=== PATIENT | male | born 1975 | race Caucasian/White ===

== ENCOUNTER 2022-07-28 11:19 | Observation (INO) | payer OTHER, SELFPAY ==
[2022-07-28 11:20] VITALS: BP 202/101; PULSE 76; RESP 18; TEMP 36.1; O2SAT 100; BMI 53.2
--- NOTE | 2022-07-28 11:42 | ED.VIS.CHEST ---
HPI <RU Webster - Last Filed: 07/28/22 16:45> History of Present Illness Chief Complaint: Chest Pain Narrative Narrative: Patient presents today with nonradiating constant midsternal chest discomfort and chest heaviness that started around 10:30 this morning while he was at [employer]. Patient also states that he feels like he has a lump in his throat. He states that about a week ago he was at a conference for work when he had similar symptoms as well as heart palpitations but thought that he was maybe having a panic attack as he has had them in the past. Today he figured he would come and get this evaluated since it happened again. Patient's blood pressure is elevated in triage but he states that he has no history of hypertension. PMH includes hypothyroidism and obesity. He denies any shortness of breath, fever, chills, abdominal pain, nausea, and vomiting. Denies a history of cardiac conditions and states he has never had a blood clot. PFSH <RU Webster - Last Filed: 07/28/22 16:45> [facility] Medical History (Updated 07/28/22 @ 15:[address] Earnest Russell MD) Hypothyroid Allergy/AdvReac Type Severity Reaction Status Date / Time codeine Allergy Shortness Verified 07/28/22 11:23 of breath Social History Smoking Status: Never smoker ROS <RU Webster - Last Filed: 07/28/22 16:45> ROS ED Constitutional Constitutional ED: Denies chills, fever(s) or sweats Eyes Eyes: Denies blurry vision or diplopia Cardiovascular Cardiovascular: Reports chest pain and other Details: Chest heaviness ; Denies palpitations Respiratory/Chest Respiratory/Chest: Reports cough; Denies dyspnea, tachypnea or wheezing Gastrointestinal Gastrointestinal: Denies abdominal pain, diarrhea, nausea or vomiting Genitourinary Genitourinary ED: Denies dysuria, hematuria or urinary urgency Musculoskeletal Musculoskeletal: Denies arthralgias, back pain, myalgias or neck pain Integumentary Denies abscess, Abrasions or rash Neurologic Neurologic: Denies confusion, dizziness or paresthesias Psychiatric Psychiatric: Denies anxiety, depression, suicidal ideation or suicidal thoughts EXAM <RU Webster Last Filed: 07/28/22 16:45> Physical Exam Const Vital Signs: 07/28/22 11:20 07/28/22 12:09 07/28/22 14:00 Temperature 97 F L 97.6 F L Temperature Source Temporal Temporal Pulse Rate 76 64 Respiratory Rate 18 18 Blood Pressure 202/101 H 178/90 H 159/79 H Blood Pressure Mean 134 105 Pulse Ox 100 99 Oxygen Delivery Method Room Air Room Air 07/28/22 16:12 Temperature 98.8 F Temperature Source Oral Pulse Rate 70 Respiratory Rate 15 Blood Pressure 147/74 H Blood Pressure Mean 98 Pulse Ox 97 Oxygen Delivery Method Room Air Positive obese and no apparent distress Nutritional Appearance: obese HEENT Reports normocephalic and head/scalp atraumatic Mouth ED: Yes moist mucous membranes normal Eyes PERRL and EOMs intact bilaterally Neck full ROM and supple Chest Wall inspection of chest normal and palpation of chest normal Resp normal respiratory effort and clear to auscultation bilaterally Cardio regular rate and regular rhythm GI soft to palpation, non-tender, non-distended and no masses Back/Spine normal ROM and normal to inspection Extremity normal to inspection and full ROM Neuro oriented x3, CN's II-XII intact bilaterally, moves all extremities, no focal motor deficits and no sensory deficits noted Sensorium / Orientation: awake and alert Psych mental status grossly normal and thought process normal Skin no rashes or lesions noted and no wounds <Dr. Earnest Russell MD - Last Filed: 07/28/22 15:25> Physical Exam Const Vital Signs: 07/28/22 11:20 07/28/22 12:09 07/28/22 14:00 Temperature 97 F L 97.6 F L Temperature Source Temporal Temporal Pulse Rate 76 64 Respiratory Rate 18 18 Blood Pressure 202/101 H 178/90 H 159/79 H Blood Pressure Mean 134 105 Pulse Ox 100 99 Oxygen Delivery Method Room Air Room Air 07/28/22 16:12 Temperature 98.8 F Temperature Source Oral Pulse Rate 70 Respiratory Rate 15 Blood Pressure 147/74 H Blood Pressure Mean 98 Pulse Ox 97 Oxygen Delivery Method Room Air <RU Webster - Last Filed: 07/28/22 16:45> Heart Score Score: 4 <Dr. Earnest Russell MD - Last Filed: 07/28/22 15:25> Heart Score History: Highly Suspicious ECG: Normal Age: >45 - <65 years Risk Factors: 1 or 2 Risk Factors Troponin: </= Normal Limit Score: 4 MDM <RU Webster - Last Filed: 07/28/22 16:45> [facility] Narrative Medical decision making narrative: Patient is presenting today with chest discomfort and heaviness that started around 10:30 AM this morning at rest. The last time this happened to patient was about a week ago at rest. Will be worked up for ACS. Patient was hypertensive on arrival at 202/102. He was given a dose of nitroglycerin, repeat blood pressure is 178/90. He states that he does not have any history of hypertension, but does not check his BP at home. He states it is usually in the 130s systolic when he goes to see his PCP and that they are keeping an eye on it and trying to bring it down via lifestyle changes, however patient states he has gained weight since he last saw his PCP. Patient states that his chest discomfort did improve with nitroglycerin. His blood pressure did go down to 147/74. CBC does not show any leukocytosis or anemia, BMP unremarkable, troponin and delta troponin negative. Chest x-ray shows no pneumothorax, pleural effusion, or infiltrate. Because patient had a few episodes of this chest discomfort coming on at rest, he has been discussed with Dr. Barrera who agrees that patient would benefit for admission for stress test. Patient has not had a stress test or any cardiac work-ups in the past. Patient will be admitted in stable condition and is comfortable with plan. Lab Data Labs: Laboratory Results - last 24 hr 07/28/22 07/28/22 07/28/22 11:54 11:54 14:43 WBC 5.1 RBC 5.14 Hgb 14.8 Hct 44.8 MCV 87.2 MCH 28.8 MCHC 33.0 RDW Std Deviation 40.2 RDW Coeff of Hernandez 12.8 Plt Count 219 MPV 10.7 Immature Gran % (Auto) 0.200 Neut % (Auto) 44.7 L Lymph % (Auto) 41.4 H [place] % (Auto) 8.6 Eos % (Auto) 3.7 Baso % (Auto) 1.4 H Absolute Neuts (auto) 2.3 Absolute Lymphs (auto) 2.12 Nucleated RBC % 0 Sodium 138 Potassium 4.1 Chloride 105 Carbon Dioxide 24.0 Anion Gap 9 BUN 12 Creatinine 0.90 Estim Creat Clear Calc 102.56 Est GFR (MDRD) Af Amer 116 Est GFR (MDRD) Non-Af 96 BUN/Creatinine Ratio 13.3 Glucose 111 H Calcium 9.1 Troponin I High Sens 11 10 Radiography Diagnostic Testing: Clinical Impression(s) from Imaging Studies Chest X-Ray 07/28/22 12:29 IMPRESSION: No radiographic evidence of acute cardiopulmonary disease. Electronically Signed: Ramila Ames MD at 13:04 EDT , EKG Initial EKG: Comments: 66 bpm, normal sinus rhythm, no ST elevation, no signs of cardiac ischemia, EKG reviewed and interpreted by attending ED physician. <Dr. Earnest Russell MD - Last Filed: 07/28/22 15:25> MDM History & Record Review Additional record(s) reviewed:: No prior records (w/r/t cardiology) Lab Data Attestation: I reviewed the patient's lab results. Labs: Laboratory Results - last 24 hr 07/28/22 07/28/22 07/28/22 11:54 11:54 14:43 WBC 5.1 RBC 5.14 Hgb 14.8 Hct 44.8 MCV 87.2 MCH 28.8 MCHC 33.0 RDW Std Deviation 40.2 RDW Coeff of Hernandez 12.8 Plt Count 219 MPV 10.7 Immature Gran % (Auto) 0.200 Neut % (Auto) 44.7 L Lymph % (Auto) 41.4 H [place] % (Auto) 8.6 Eos % (Auto) 3.7 Baso % (Auto) 1.4 H Absolute Neuts (auto) 2.3 Absolute Lymphs (auto) 2.12 Nucleated RBC % 0 Sodium 138 Potassium 4.1 Chloride 105 Carbon Dioxide 24.0 Anion Gap 9 BUN 12 Creatinine 0.90 Estim Creat Clear Calc 102.56 Est GFR (MDRD) Af Amer 116 Est GFR (MDRD) Non-Af 96 BUN/Creatinine Ratio 13.3 Glucose 111 H Calcium 9.1 Troponin I High Sens 11 10 Radiography Chest X-Ray - ED: 1 View, Read by ED Physician, No Acute Disease and No Infiltrates Diagnostic Testing: Clinical Impression(s) from Imaging Studies Chest X-Ray 07/28/22 12:29 IMPRESSION: No radiographic evidence of acute cardiopulmonary disease. Electronically Signed: Ramila Ames MD at 13:04 EDT , Rhythm Strip Rhythm Strip: Sinus Rhythm Rate: 70 Ectopy: None EKG Initial EKG: Attestation: I personally reviewed and interpreted this EKG as follows: Interpretation: Sinus Rhythm and No Acute Injury Pattern Treatment and Re-Evaluation Comments:: Seen and evaluated independently and in conjunction with physician assistant professor of life sciences. Agree with notes above unless documented otherwise. Patient having symptoms possible cardiac discomfort, heart is regular, lungs are clear, he is hypertensive which may or may not be related to this. His cardiac work-up is negative. He has been compliant with his medications but is not on anything for blood pressure, and unknown how long it has been up. Patient's symptoms resolved with nitroglycerin, which also brought his blood pressure down and he felt better. Troponin and delta both negative. Heart score is 3, patient giving a score of 1 for his risk given obesity only. Discussed with cardiology Dr. Barrera; agrees with inpatient observation for provocative stress testing. Discharge Plan Dx/Rx/DC Orders Clinical Impression: Chest pain, Accelerated hypertension Disposition Disposition: Acute Care Hospital [facility] Discharge Date/Time: 07/28/22 16:26
[2022-07-28 12:08] LABS: Absolute Lymphocyte Count 2.12 X10^3/uL (0.83-4.51); Absolute Neutrophil Count 2.3 X10^3/uL (2.0-7.7); Basophil# 0.07 X10^3/uL; Basophil% 1.4 % (0-1); Eosinophil# 0.19 X10^3/uL; Eosinophils% 3.7 % (0-5); Hematocrit 44.8 % (40-54); Hemoglobin 14.8 g/dL (13.0-16.5); Lymphocyte # 2.12 X10^3/ul (0.83-4.51); Lymphocyte % 41.4 % (19-41); Mean Corpuscular Hgb 28.8 pg (27.0-32.0); Mean Corpuscular Volume 87.2 fL (80-94); Mean Platelet Vol. 10.7 fl (6.2-12.0); Monocyte# 0.44 X10^3/uL; Monocyte% 8.6 % (0-10); NRBC Flagged by Analyzer 0 % (0-5); Neutrophil # 2.29 X10^3/uL (2.7-7.7); Neutrophil % 44.7 % (47-70); Platelet Count 219 K/mm3 (150-450); RBC Distribution Width CV 12.8 % (11.6-14.6); RBC Distribution Width SD 40.2 fl (35.1-43.9); Red Blood Count 5.14 M/mm3 (4.6-6.2); White Blood Count 5.1 K/mm3 (4.4-11.0)
[2022-07-28 12:09] VITALS: BP 178/90
[2022-07-28] MEDS: Nitroglycerin SL (ED/IMG/CATH) 0.4 MG TABLET SL (12:09)
[2022-07-28] MEDS: Aspirin 81 MG TAB.CHEW 324 MG PO (12:09)
[2022-07-28 12:23] LABS: Anion Gap 9 (5-15); BUN 12 mg/dL (7-18); BUN/Creat Ratio 13.3 RATIO (10-20); Calcium,Total 9.1 mg/dL (8.5-10.1); Chloride 105 mmol/L (98-107); EST Glomerular Filtration Rate 96 mL/min (>60); Est Glom Filt Rate - Afr Amer 116 mL/min (>60); Estimated Creatinine Clearance 102.56 ml/min; Glucose 111 mg/dL (74-106); Potassium 4.1 mmol/L (3.5-5.1); Sodium Level 138 mmol/L (136-145); Troponin-I HS (w/2H Reflex) 11 pg/mL (3.0-78.0)
--- NOTE | 2022-07-28 12:29 | RAD_ITS ---
INDICATION: chest pain EXAMINATION/TECHNIQUE: X-RAY - XR Chest 2 frontal images were obtained. COMPARISON: None. FINDINGS: LINES/DEVICES: None. LUNGS: No consolidation, edema or effusion. No pneumothorax. MEDIASTINUM AND CARDIOVASCULAR STRUCTURES: Cardiac silhouette not enlarged. Central airways and mediastinal contour are unremarkable. BONES AND SOFT TISSUES: Unremarkable. RAD/Chest 1 View (Portable) IMPRESSION: No radiographic evidence of acute cardiopulmonary disease. Electronically Signed: Ramila Ames MD at 13:04 EDT ,
[2022-07-28 14:00] VITALS: BP 159/79; PULSE 64; RESP 18; TEMP 36.4; O2SAT 99
[2022-07-28 15:10] LABS: Troponin-I HS 10 pg/mL (3.0-78.0)
[2022-07-28 16:12] VITALS: BP 147/74; PULSE 70; RESP 15; TEMP 37.1; O2SAT 97
--- NOTE | 2022-07-28 16:36 | HP.PCM.HOS_ITS ---
HPI - General General Date of Admission: 07/28/22 Date of Service: 07/28/22 Chief Complaint: Chest pain HPI Narrative WENDY SAPP, is a 46 M with a history of obesity and hypothyroidism who presented to [facility] 07/28/2022 with chest discomfort and heaviness. In ED he was noted to have a blood pressure of 202/101 and is given nitroglycerin with improvement in symptoms. EKG with no significant ST changes and troponin negative. Cardiology called in ED and recommended stress test. Hospitalist consulted for admission. Patient evaluated at bedside and reported that over this past week he has had several episodes where he feels chest tightness and nausea and sometimes lightheaded. Initially thought it was a panic attack but had not felt anxious and returned. Was okay last night but at 1030 this morning he was in [employer] and felt the lightheadedness, chest tightness, flushed, nausea and presented to the emergency department. Pain improved with nitroglycerin but blood pressure also had significantly improved with the nitroglycerin. Presently pain-free, denies any other complaints today. Denies excessive caffeine intake, denies history of significantly elevated blood pressure, denies any substance use, does note he snores and said his thinks he has sleep apnea but he has not had a sleep study. [facility] Medical History Hypothyroid Home Medications levothyroxine 175 mcg tablet 175 mcg PO DAILY hypothyroidism 07/28/22 [History Last Taken Unknown] omeprazole 40 mg capsule,delayed release 40 mg PO DAILY PRN heartburn 07/28/22 [History Last Taken Unknown] Allergy/AdvReac Type Severity Reaction Status Date / Time codeine Allergy Shortness Verified 07/28/22 11:23 of breath Social History Smoking Status: Never smoker ROS ROS Narrative General: Denies fever or chills, denies weight change HENT: Did have a headache but this is resolved, denies stuffy nose, denies sore throat EYES: Denies changes in vision Resp: Denies cough, denies shortness of breath at this time Cardiac: Chest tightness has resolved GI: Denies abdominal pain, denies changes in bowel, did have nausea during his episode of chest pain : Denies changes in urination Extremity: Denies swelling MSK: Denies weakness Neuro: Denies any numbness, denies tingling Heme: Denies any bleeding or bruising Skin: Denies rashes Psychiatric: No complaints voiced Vital Signs Vital Signs Vital Signs: 07/28/22 11:20 07/28/22 12:09 07/28/22 14:00 Temperature 97 F L 97.6 F L Temperature Source Temporal Temporal Pulse Rate 76 64 Respiratory Rate 18 18 Blood Pressure 202/101 H 178/90 H 159/79 H Blood Pressure Mean 134 105 Pulse Ox 100 99 Oxygen Delivery Method Room Air Room Air 07/28/22 16:12 Temperature 98.8 F Temperature Source Oral Pulse Rate 70 Respiratory Rate 15 Blood Pressure 147/74 H Blood Pressure Mean 98 Pulse Ox 97 Oxygen Delivery Method Room Air Weight Weight: 163.656 kg Body Mass Index (BMI) 53.2 Physical Exam Narrative General: Alert, oriented, no apparent distress HEENT: Atraumatic, normocephalic Eyes: Anicteric, normal conjunctiva, extraocular movements grossly intact Neck: Supple Respiratory: Clear to auscultation bilaterally, normal respiratory effort Cardiovascular: Regular rate and rhythm GI: Soft, nontender, nondistended Extremities: No edema Musculoskeletal: Moving all extremities Neuro: No overt focal neurological deficits Skin: No rashes appreciated Psych: Cooperative Results Lab / Micro Data Result Diagrams: 07/28/22 11:54 07/28/22 11:54 Labs: Laboratory Results - last 24 hr 07/28/22 11:54: WBC 5.1, RBC 5.14, Hgb 14.8, Hct 44.8, MCV 87.2, MCH 28.8, MCHC 33.0, RDW Std Deviation 40.2, RDW Coeff of Hernandez 12.8, Plt Count 219, MPV 10.7, Immature Gran % (Auto) 0.200, Neut % (Auto) 44.7 L, Lymph % (Auto) 41.4 H, [place] % (Auto) 8.6, Eos % (Auto) 3.7, Baso % (Auto) 1.4 H, Absolute Neuts (auto) 2.3, Absolute Lymphs (auto) 2.12, Nucleated RBC % 0 07/28/22 11:54: Sodium 138, Potassium 4.1, Chloride 105, Carbon Dioxide 24.0, Anion Gap 9, BUN 12, Creatinine 0.90, Estim Creat Clear Calc 102.56, Est GFR (MDRD) Af Amer 116, Est GFR (MDRD) Non-Af 96, BUN/Creatinine Ratio 13.3, Glucose 111 H, Calcium 9.1, Troponin I High Sens 11 07/28/22 14:43: Troponin I High Sens 10 Rhythm Strip Rhythm Strip: Sinus Rhythm Rate: 70 Ectopy: None Radiology Impression Chest X-Ray 07/28/22 12:29 IMPRESSION: No radiographic evidence of acute cardiopulmonary disease. Electronically Signed: Ramila Ames MD at 13:04 EDT , Assessment & Plan Assessment/Plan (1) Chest pain: (2) Accelerated hypertension: PLAN: Plan #Chest pain -Had concerning story with chest pain at rest, risk factors, no previous cardiac work-up -EKG normal sinus rhythm with no ST changes -Troponin normal x3 -Heart score 3 -Loaded with aspirin, aspirin daily -Cardiology contacted in ED and recommended stress test in the a.m. -N.p.o. at midnight -Stress test ordered for a.m. -Consult cardiology if stress test abnormal -Echocardiogram -Lipid panel in the a.m, statin started but can likely be discontinued if lipid panel within normal limits -Suspect JAMI given history, would recommend outpatient sleep study #Accelerated hypertension -Hypertensive urgency -Troponin within normal limits, patient did have chest tightness and headache earlier, unclear temporal association -Presently significantly improved, given drop of BP from 202/101 to 147/74 will avoid scheduling p.o. antihypertensives at this time as this is already been a significant drop -We will likely need daily medications with close outpatient follow-up on discharge for adjustments and outpatient sleep study #Hypothyroidism -We will order TSH, continue Synthroid #Morbid obesity -BMI 52.5 -Complicates care and management -Recommend outpatient sleep study #DVT ppx: Low risk ambulatory Jennifer Allen MD Time spent in the patient's overall evaluation,decision-making process, review of diagnostic data, adjustment of management, discussion with other providers, nursing nursing and ancillary staff involved in patient's care documentation, 60 minutes Charges/Coding Visit Charges Inpatient E&M: 88836 Init Hosp L2
--- NOTE | 2022-07-28 17:15 | ECHOCS_ITS ---
Reason For Study: CHEST PAIN Procedure This was a 2D Doppler, Color Flow transthoracic echocardiogram. The study was technically difficult. Due to body habitus. Contrast injection was performed. Exam performed portable in patient room. Left Ventricle Normal LV size. Mild concentric left ventricular hypertrophy. Left ventricular systolic function is normal. The estimated ejection fraction is 65 %. Stage 1 diastolic dysfunction. No regional wall motion abnormalities noted. Right Ventricle Normal RV size. Normal systolic function. Atria Normal left atrium. Normal right atrium. Mitral Valve Normal mitral valve. Tricuspid Valve Normal tricuspid valve. Aortic Valve Normal aortic valve. Pulmonic Valve Normal pulmonic valve. Great Vessels Normal aortic root. The pulmonary artery is normal size. Normal inferior vena cava. Pericardium/Pleural No pericardial effusion. Medication Diluted definity 3.0ml given slow IV push to enhance endocardial definition. MMode/2D Measurements & Calculations LVIDd: 4.6 cm IVSd: 1.3 cm Ao root diam: 3.3 cm LVIDs: 3.5 cm LVPWd: 1.3 cm FS: 22.9 % LAV(MOD-bp): 73.2 ml LVAd ap4: 36.8 cm2 LVAd ap2: 27.0 cm2 LAV(MOD-bp) Indexed: 27.8 ml/m2 LVLd ap4: 9.0 cm LVLd ap2: 8.6 cm LAV(MOD-sp2): 66.5 ml EDV(MOD-sp4): 125.4 ml EDV(MOD-sp2): 68.4 ml LAV(MOD-sp4): 69.6 ml EDV(sp4-el): 127.6 ml EDV(sp2-el): 71.9 ml LVAs ap4: 20.4 cm2 LVAs ap2: 16.4 cm2 LVLs ap4: 8.3 cm LVLs ap2: 8.4 cm ESV(MOD-sp4): 43.9 ml ESV(MOD-sp2): 27.4 ml ESV(sp4-el): 42.4 ml ESV(sp2-el): 27.1 ml EF(MOD-sp4): 65.0 % EF(MOD-sp2): 59.9 % EF(sp4-el): 66.7 % SV(MOD-sp4): 81.5 ml SV(MOD-sp2): 41.0 ml SV(sp4-el): 85.2 ml LA A4 area: 22.8 cm2 LA dimension(2D): 4.5 cm RA A4 area: 17.2 cm2 Time Measurements MV dec time: 0.24 sec Doppler Measurements & Calculations MV E max valeriy: 65.7 cm/sec Med Peak E' Valeriy: 6.7 cm/sec Ao V2 max: 136.7 cm/sec MV A max valeriy: 95.2 cm/sec E/E' med: 9.8 Ao max P.5 mmHg MV E/A: 0.69 Ao V2 mean: 99.4 cm/sec Ao mean P.5 mmHg Ao V2 VTI: 28.6 cm AV (velocity ratio): 0.70 LV V1 max: 67.6 cm/sec PA V2 max: 134.1 cm/sec LV V1 max P.5 mmHg LV V1 mean P.2 mmHg LV V1 mean: 70.3 cm/sec LV V1 VTI: 19.9 cm ECHO/Echo Complete W/ Contrast Interpretation Summary Normal LV size. Mild concentric left ventricular hypertrophy. Left ventricular systolic function is normal. The estimated ejection fraction is 65 %. Stage 1 diastolic dysfunction. Contrast injection was performed. Ordering Physician: Jennifer Allen Referring Physician: Jeremy Smith Performed By: Viviana Hooper, RYAN, RVT
[2022-07-28 17:28] VITALS: BMI 52.5
[2022-07-28 17:39] VITALS: BP 141/74; PULSE 70; RESP 18; TEMP 36.6; O2SAT 100
[2022-07-28 19:01] LABS: Troponin-I HS 10 pg/mL (3.0-78.0)
[2022-07-28 22:10] VITALS: BP 136/68; PULSE 67; RESP 18; TEMP 37.1; O2SAT 95
[2022-07-28] MEDS: Acetaminophen 325 MG Tablet 650 MG PO (22:11)
[2022-07-28] MEDS: Calcium Carbonate 500 MG Tablet 1000 MG PO (22:12)
[2022-07-28] MEDS: MELATONIN 3 MG TABLET PO (22:12)
[2022-07-28] MEDS: Atorvastatin Calcium 40 MG Tablet PO (22:12)
[2022-07-29] MEDS: Levothyroxine 175 MCG Tablet PO (04:13)
[2022-07-29] MEDS: Aspirin E.C. 81 MG Tablet PO (04:13)
[2022-07-29 04:15] VITALS: BP 159/90; PULSE 63; RESP 18; TEMP 36.8; O2SAT 97
[2022-07-29 06:00] VITALS: BMI 52.0
[2022-07-29 06:43] LABS: Absolute Lymphocyte Count 2.12 X10^3/uL (0.83-4.51); Absolute Neutrophil Count 2.5 X10^3/uL (2.0-7.7); Basophil# 0.06 X10^3/uL; Basophil% 1.1 % (0-1); Eosinophil# 0.19 X10^3/uL; Eosinophils% 3.5 % (0-5); Hematocrit 46.5 % (40-54); Hemoglobin 14.9 g/dL (13.0-16.5); Lymphocyte # 2.12 X10^3/ul (0.83-4.51); Lymphocyte % 39.5 % (19-41); Mean Corpuscular Hgb 29.3 pg (27.0-32.0); Mean Corpuscular Volume 91.5 fL (80-94); Mean Platelet Vol. 11.9 fl (6.2-12.0); Monocyte# 0.45 X10^3/uL; Monocyte% 8.4 % (0-10); NRBC Flagged by Analyzer 0 % (0-5); Neutrophil # 2.54 X10^3/uL (2.7-7.7); Neutrophil % 47.3 % (47-70); POSITIVE COUNT YES; RBC Distribution Width CV 12.9 % (11.6-14.6); RBC Distribution Width SD 42.7 fl (35.1-43.9); Red Blood Count 5.08 M/mm3 (4.6-6.2); White Blood Count 5.4 K/mm3 (4.4-11.0)
[2022-07-29 06:55] LABS: Differential Indicated SCAN CRITERIA MET
[2022-07-29 07:35] LABS: Platelet Estimate ADEQUATE (ADEQ)
[2022-07-29 08:08] VITALS: BP 142/75; PULSE 68; RESP 15; TEMP 36.8; O2SAT 98
[2022-07-29 08:49] LABS: AST(SGOT) 55 U/L (15-37); Alanine Aminotransfer ALT/SGPT 83 U/L (16-61); Albumin, Serum 3.9 g/dL (3.2-5.0); Alkaline Phosphatase 77 U/L (45-117); Anion Gap 7 (5-15); BUN 10 mg/dL (7-18); BUN/Creat Ratio 11.3 RATIO (10-20); Calcium,Total 8.9 mg/dL (8.5-10.1); Chloride 106 mmol/L (98-107); Cholesterol 171 mg/dL (200); Creatinine, Serum 0.89 mg/dL (0.70-1.30); EST Glomerular Filtration Rate 98 mL/min (>60); Est Glom Filt Rate - Afr Amer 119 mL/min (>60); Estimated Creatinine Clearance 103.71 ml/min; Globulin 3.8 g/dL (2.2-4.2); Glucose 108 mg/dL (74-106); High Density Lipoprotein 37 mg/dL; Protein, Total 7.7 g/dL (6.4-8.2); Sodium Level 139 mmol/L (136-145); Thyroid Stim Hormone (TSH) 6.86 uIU/mL (0.358-3.74); Triglycerides 116 mg/dL; Very Low Density Lipoprotein 23 mg/dL (5-40)
[2022-07-29 09:19] VITALS: O2SAT 96
[2022-07-29 10:34] LABS: T4 Free Direct 1.36 ng/dL (0.76-1.46)
[2022-07-29] MEDS: Lisinopril 10 MG Tablet PO (11:29)
--- NOTE | 2022-07-29 11:37 | STRESSREP ---
Stress Test Report Exercise myocardial perfusion stress test. 46-year-old male with a history of chest pain Stress protocol: Resting EKG demonstrates normal sinus rhythm with a rate of 70 bpm resting blood pressure is 150/72 mmHg. The patient exercised according to the regular Sebastian protocol for a total duration of 7 minutes attaining a maximum heart rate of 162 bpm which was 93% of maximum predicted heart rate; the maximum workload was 10.3 metabolic equivalents. At rest there were no ST or T wave changes noted to suggest ischemia and at peak exercise upsloping ST changes only were noted which did not meet the criteria for ischemia. No clinical angina was noted the test was terminated due to the target heart rate being achieved/fatigue. The peak blood pressure was 210/70 mmHg. Rate-pressure product was 27,000. Myocardial perfusion protocol. 15.0 mCi of technetium 99m sestamibi was injected at rest. The patient exercised according to regular Sebastian protocol for total duration of 7 minutes and at peak exercise 44.9 mCi of technetium 99m sestamibi was injected stress images were obtained stress and rest images were reconstructed in comparing the short axis vertical long and horizontal long axis. Gated images were also obtained. Perfusion SPECT analysis: Review of the stress images demonstrate normal uptake of tracer noted in all areas of the myocardium. The resting images similarly demonstrate normal uptake of tracer noted in all areas of the myocardium. No areas of reversibility are noted to suggest ischemia no previous infarct was noted. Gated SPECT analysis: The gated ejection fraction is 63%. Conclusion: Normal exercise myocardial perfusion stress test at a high workload Preserved ejection fraction.
--- NOTE | 2022-07-29 13:46 | PCM.DC.SUM ---
Providers Date of Admission: 07/28/22 Date of Discharge: 07/29/22 Primary Care Physician: Dr. Jeremy Smith MD Reason For Visit: CHEST PAIN, HTN URGENCY Diagnosis Discharge Diagnosis (1) Chest pain: Status: Acute Code(s): R07.9 - Chest pain, unspecified (2) Accelerated hypertension: Status: Acute Code(s): I10 - Essential (primary) hypertension Medications at Discharge Home Medications levothyroxine 175 mcg tablet 175 mcg PO DAILY hypothyroidism 07/28/22 omeprazole 40 mg capsule,delayed release 40 mg PO DAILY PRN heartburn 07/28/22 lisinopril 10 mg tablet 10 mg PO DAILY #30 tabs 07/29/22 Hospital Course Procedures 2-D Echocardiogram and Stress test Summary of Care Provided Minutes Spent on Discharge: 36 Hospital Course: Mr. Ibrahim is a 46-year-old white male with a history of obesity and hypothyroidism who presented to the emergency department [facility] on 07/28/2022 with chest discomfort and heaviness. In the emergency department prior to admission he was found to have a blood pressure of 202/101 and was given nitroglycerin. His symptoms improved after this. EKG showed no significant ST-T wave changes and troponin was negative. Cardiology was called from the emergency department and recommended a stress test at that time. He was admitted to the PCU for further evaluation. He does have history of blood pressure elevations previously but is not on any blood pressure medicine at baseline. There is some suspicion that he might have obstructive sleep apnea as his does note that he snores and she suspects he has apnea as well. He has never had a sleep study. He denies any excess caffeine intake. He has been compliant with his Synthroid. Stress test was performed on 07/29/2022 and he was found to have an EF of 63% with normal exercise myocardial perfusion at a high workload. Echocardiogram was performed and demonstrated mild concentric LVH with an EF of 65% and stage I diastolic dysfunction. His TSH was obtained and found to be slightly elevated at 6.86 but his free T4 is normal so we continue the same dose of levothyroxine. He does have some transaminitis and I suspect he has fatty liver disease. Recommend weight loss and further work-up by his primary care physician. His blood pressure remained elevated and we therefore started lisinopril 10 mg daily. We have asked him to follow-up with his primary care physician in the next 3 to 7 days for a blood pressure check and then to see his primary care physician within the next 2 to 4 weeks for post hospital follow-up. I did give him referral to pulmonary medicine for sleep study if he would like to pursue that through pulmonary medicine or obtain an order from his primary care physician we left that to him at the time of discharge. His prescription was faxed to [facility] in [place] and he was discharged home in stable condition on 07/29/2022. Discharge diagnoses: Chest pain-resolved Hypertensive urgency-resolved Mild transaminitis--> suspect fatty liver disease and recommended further outpatient work-up Hypothyroidism Suspected JAMI Obesity Physical Exam Const alert, oriented x3, no apparent distress, no limitations, healthy appearing and well nourished Constitutional Narrative: Morbidly obese, middle-aged white male, sitting up in bed, at bedside, patient appears comfortable nontoxic, watching television General Appearance: cooperative, comfortable, well kempt and well developed Orientation / Consciousness: awake, oriented to person, oriented to place and oriented to time Exam Limitations: no limitations Nutritional Appearance: morbidly obese HEENT normocephalic, head/scalp atraumatic, hearing grossly normal bilaterally and moist oral mucous membranes Eyes PERRL, EOMs intact bilaterally and conjunctivae normal Eyes Narrative: No scleral icterus Neck no lymphadenopathy, supple and no JVD Neck Narrative: Trachea midline, mild thyroid enlargement or nodules noted Resp normal respiratory effort, no retractions, no use of accessory muscles and clear to auscultation bilaterally Auscultation: Negative for rales, rhonchi or wheezes Cardio regular rate, regular rhythm, S1 normal heart sound, S2 normal heart sound, no murmurs, no rub, no gallops and no clicks GI normal to inspection, nondistended, normoactive bowel sounds, soft to palpation and non-tender Extremity no clubbing, cyanosis or edema Extremity Narrative: 2+ pedal pulses Skin no rashes or lesions noted, no wounds, skin turgor normal and no jaundice Neuro oriented x3, CN's II-XII intact bilaterally, moves all extremities, no focal motor deficits and no sensory deficits noted Speech: speech normal Psych affect normal Psych Narrative: Very pleasant, appropriately interactive Weight / BMI Weight Weight: 160 kg Body Mass Index (BMI) 52.0 ABG / Lab / Microbiology Data Result Diagrams: 07/29/22 06:01 07/29/22 07:55 Laboratory: Laboratory Results - last 24 hr 07/28/22 14:43: Troponin I High Sens 10 07/28/22 18:20: Troponin I High Sens 10 07/29/22 06:01: WBC 5.4, RBC 5.08, Hgb 14.9, Hct 46.5, MCV 91.5, MCH 29.3, MCHC 32.0, RDW Std Deviation 42.7, RDW Coeff of Hernandez 12.9, Plt Count , MPV 11.9, Immature Gran % (Auto) 0.200, Neut % (Auto) 47.3, Lymph % (Auto) 39.5, [place] % (Auto) 8.4, Eos % (Auto) 3.5, Baso % (Auto) 1.1 H, Absolute Neuts (auto) 2.5, Absolute Lymphs (auto) 2.12, Nucleated RBC % 0, Platelet Estimate ADEQUATE 07/29/22 06:07: Sodium Cancelled, Potassium Cancelled, Chloride Cancelled, Carbon Dioxide Cancelled, Anion Gap Cancelled, BUN Cancelled, Creatinine Cancelled, Estim Creat Clear Calc Cancelled, Est GFR (MDRD) Af Amer Cancelled, Est GFR (MDRD) Non-Af Cancelled, BUN/Creatinine Ratio Cancelled, Glucose Cancelled, Calcium Cancelled, Total Bilirubin Cancelled, AST Cancelled, ALT Cancelled, Alkaline Phosphatase Cancelled, Total Protein Cancelled, Albumin Cancelled, Globulin Cancelled, Albumin/Globulin Ratio Cancelled, Triglycerides Cancelled, Cholesterol Cancelled, LDL Cholesterol Cancelled, VLDL Cholesterol Cancelled, HDL Cholesterol Cancelled, TSH Cancelled 07/29/22 07:55: Sodium 139, Potassium 4.0, Chloride 106, Carbon Dioxide 26.0, Anion Gap 7, BUN 10, Creatinine 0.89, Estim Creat Clear Calc 103.71, Est GFR (MDRD) Af Amer 119, Est GFR (MDRD) Non-Af 98, BUN/Creatinine Ratio 11.3, Glucose 108 H, Calcium 8.9, Total Bilirubin 1.00, AST 55 H, ALT 83 H, Alkaline Phosphatase 77, Total Protein 7.7, Albumin 3.9, Globulin 3.8, Albumin/Globulin Ratio 1.0, Triglycerides 116, Cholesterol 171, LDL Cholesterol 111, VLDL Cholesterol 23, HDL Cholesterol 37 L, TSH 6.86 H 07/29/22 07:55: Free T4 1.36 Meaningful Use Info Meaningful Use Diagnoses (Choose all that apply): None applicable Discharge Plan Admission Admit Date/Time: 07/28/22 16:31 Primary Reason for Your Visit: Chest pain Attending Provider: Petra Cesar Primary Care Provider: Jeremy Smith Consulting Providers: Jennifer Allen Instructions Additional Instructions / Restrictions: 1. We do suspect you have obstructive sleep apnea. Please see pulmonary medicine as noted below or follow-up with your primary care physician to obtain orders for a nocturnal sleep study to be performed. Treating this may help with your blood pressure as well. Discharge Orders/Prescriptions Prescriptions: New lisinopril 10 mg Tablet 10 mg PO DAILY Qty: 30 5RF Continued levothyroxine 175 mcg Tablet 175 mcg PO DAILY omeprazole 40 mg Capsule,Delayed Release(Dr/Ec) 40 mg PO DAILY PRN (Reason: heartburn) Referrals / Follow Up: Jeremy Smith MD [Primary Care Provider] - See Referral Note (Please go in for a nurses visit in the next 3 to 7 days to have your blood pressure checked. Please make a follow-up appointment to be seen by your primary care physician within the next 2 to 4 weeks) Disposition Disposition (needs filled in before D/C Order can be placed): Home, Self Care Charges/Coding Visit Charges Inpatient E&M: 75564 Disch Hosp
[2022-07-29 14:29] VITALS: BP 126/68; PULSE 72; RESP 17; TEMP 36.8; O2SAT 96
[2022-07-29 14:52] VITALS: PULSE 72; RESP 17; TEMP 36.8; O2SAT 96
--- NOTE | 2022-07-29 16:57 | PHA.DC.MR ---
Pharmacy Service has performed discharge medication reconciliation for this patient. The patient's discharge medication list was reviewed for discrepancies and discrepancies were resolved. Medication education papers prepared, unable to family life counselor before D/C. Home Medications levothyroxine 175 mcg tablet 175 mcg PO DAILY hypothyroidism 07/28/22 omeprazole 40 mg capsule,delayed release 40 mg PO DAILY PRN heartburn 07/28/22 lisinopril 10 mg tablet 10 mg PO DAILY #30 tabs 07/29/22
== END 2022-07-29 13:50 | disposition home or self-care (01) ==
LOC: ED 15:23 → PCU 16:45
PROVIDERS: Physician Assistant; Admitting Provider Internal Medicine; Emergency Provider Emergency Medicine; PCP Family Medicine; Visit Provider Internal Medicine
DX: R07.89 Other chest pain (principal); Z68.43 Body mass index [BMI] 50.0-59.9, adult; I16.0 Hypertensive urgency; E66.9 Obesity, unspecified; I10 Essential (primary) hypertension; E03.9 Hypothyroidism, unspecified; R74.01 Elevation of levels of liver transaminase levels; Z79.890 Hormone replacement therapy
CPT/HCPCS: 36415; 71045; 78452; 80048; 80053; 80061; 84439; 84443; 84484; 85025; 93005; 93017; 93306; 99221; 99284; A9500; Q9957; A4216; C8929; G0378

== ENCOUNTER → 2022-08-12 | Outpatient (CLI) | payer OTHER, SELFPAY | END | disposition home or self-care (01) | LOC: SL 20:04 | PROVIDERS: PCP Family Medicine; Referring Provider Family Medicine; Visit Provider Family Medicine | DX: G47.33 Obstructive sleep apnea (adult) (pediatric) (principal); E66.01 Morbid (severe) obesity due to excess calories | CPT/HCPCS: 95811 ==

== ENCOUNTER → 2022-09-16 | Outpatient (CLI) | payer OTHER, SELFPAY ==
--- NOTE | 2022-09-16 08:05 | RAD_ITS ---
STUDY: X-RAY - ESOPHAGUS (BARIUM SWALLOW) WITH FLUOROSCOPY REASON FOR EXAM: Male, 47 years old. GERD TECHNIQUE: 13 view(s) of the esophagus were obtained following swallowing of barium. FLUOROSCOPY TIME (if supplied): (24 seconds) minutes/seconds. 19.13 mGy COMPARISON: None. FINDINGS: There is no demonstrated esophageal foreign body. There is no demonstrated stricture or mucosal abnormality. Normal gastroesophageal junction, without a demonstrated hiatal hernia. The patient ingested a 12 mm tablet of barium without any issues.. Normal visualized aortic arch and descending thoracic aorta. Normal visualized pulmonary parenchyma. Normal visualized osseous structures of the thorax. RAD/Esophagus Dual Contrast IMPRESSION: Normal plain film x-ray examination (barium swallow) of the esophagus. Electronically Signed: Jesus Lua MD at 8:33 EDT ,
== END | disposition home or self-care (01) ==
LOC: RAD 08:00
PROVIDERS: PCP Family Medicine; Referring Provider Otolaryngology; Visit Provider Otolaryngology
DX: R13.10 Dysphagia, unspecified (principal); K21.9 Gastro-esophageal reflux disease without esophagitis
CPT/HCPCS: 74221

== ENCOUNTER → 2022-10-07 | Outpatient (CLI) | payer OTHER, SELFPAY | END | disposition home or self-care (01) | PROVIDERS: PCP Family Medicine; Referring Provider Psychiatry & Neurology Sleep Medicine; Visit Provider Psychiatry & Neurology Sleep Medicine | DX: G47.33 Obstructive sleep apnea (adult) (pediatric) (principal) | CPT/HCPCS: 95811 ==

== ENCOUNTER → 2022-12-31 | Outpatient (CLI) | payer OTHER, SELFPAY | END | disposition home or self-care (01) | LOC: SL 12:09 | PROVIDERS: PCP Family Medicine; Visit Provider Family Medicine | DX: Z00.00 Encounter for general adult medical examination without abnormal findings (principal) ==